=== PATIENT | female | born 2005 | race Caucasian/White ===

== ENCOUNTER 2024-05-09 15:19 | Outpatient (CLI) | payer BC, OTHER, SELFPAY ==
--- OUTSIDE RECORDS SUMMARY | 2024-05-09 15:24 | XMS_ITS | Referral Summary ---
Author Organization [facility] Address [address] [place] [address] Care Team Providers Care Procurement Engineer Name Role Phone Abhay Ribeiro MD Primary Care Provider [phone] Allergies No known active allergies Medications Medication Sig Dispensed Refills Start Date End Date Status acetaminophen (TYLENOL) 325 mg tablet Take 1 tab (325 mg total) by mouth every six hours as needed (as needed for fever and/or pain). 100 tab 0 08/05/2015 Active ibuprofen 200 mg tablet Take 2 tab(s) (400 mg total) by mouth every six hours as needed (As needed for fever and/or pain). 100 tab 0 08/05/2015 Active Multiple Vitamins-Minerals (MULTIVITAMIN PO) Take by mouth daily. Active Active Problems No known active problems Social History Tobacco Use Types Packs/Day Years Used Date Smoking Tobacco: Never Smokeless Tobacco: Never Sex and Gender Information Value Date Recorded Sex Assigned at Not on file Gender Identity Not on file Sexual Orientation Not on file Last Filed Vital Signs Vital Sign Reading Time Taken Comments Blood Pressure - - Pulse 88 08/05/2015 7:07 PM BANK CASHIER Temperature 35.6 ??C (96 ??F) 08/05/2015 7:07 PM BANK CASHIER Respiratory Rate 16 08/05/2015 7:07 PM BANK CASHIER Oxygen Saturation - - Inhaled Oxygen Concentration - - Weight 70.6 kg (155 lb 10.3 oz) 04/27/2017 1:31 PM CDT Height 169.7 cm (5' 6.81) 04/27/2017 1:31 PM CD T Body Mass Index 24.52 04/27/2017 1:31 PM CDT Plan of Treatment Not on file Care Teams Procurement Engineer Relationship Specialty Start Date End Date Abhay Ribeiro MD [address] [place] [address] [place] [address] PCP - General 02/23/10
--- OUTSIDE RECORDS SUMMARY | 2024-05-09 15:24 | XMS_ITS | Clinical Summary ---
Author Organization [facility] Address [address] [place] [address] Care Team Providers Care Stage Manager Name Role Phone Abhay Ribeiro MD Primary Care Provider [phone] Allergies No known active allergies Medications Medication [...] - - Pulse 88 08/05/2015 7:07 PM SENIOR IT ARCHITECT Temperature 35.6 ??C (96 ??F) 08/05/2015 7:07 PM SENIOR IT ARCHITECT Respiratory Rate 16 08/05/2015 7:07 PM SENIOR IT ARCHITECT Oxygen Saturation - - Inhaled Oxygen Concentration - - Weight 70.6 kg (155 lb 10.3 oz) 04/27/2017 1:31 PM CDT Height 169.7 cm (5' 6.81) 04/27/2017 1:31 PM CD T Body Mass Index 24.52 04/27/2017 1:31 PM CDT Plan of Treatment Health Maintenance Due Date Last Done Comments MMR Sequential Vaccine (1 of 1 - Standard series) 2004 DTaP/Tdap/TD Vaccine (1 - Tdap) 2010 Varicella (Sequential) Vacci ne (1 of 2 - 13+ 2-dose series) 2016 HPV Vaccine (1 - 3-dose series) 2018 Meningococcal B Vaccine (1 o f 2 - Patient Seeks Protection) 2019 Adolescent Lipid Panel 2020 Hepatitis B Vaccine (1 of 3 - 19+ 3-dose series) 2022 Influenza Vaccine (#1) 2024 SARS-COVID Vaccine (1 - 2022 season) 2024 Hepatitis A Vaccine Aged Out No longe r eligible based on patient's age to complete this topic IPV Vaccine Aged Out No longer eligi ble based on patient's age to complete this topic Meningococcal Aged Out No longer elig ible based on patient's age to complete this topic Pneumococcal Vaccine (PCV13/PCV20/PCV23) Aged Out No longer eligible b ased on patient's age to complete this topic RSV Immunizations <20 months Aged Out No longer eligible based on patient's age to complete this topic Care Teams Stage Manager Relationship Specialty Start Date End Date Abhay Ribeiro MD [address] [place] [address] [place] [address] PCP - General 02/23/10
--- OUTSIDE RECORDS SUMMARY | 2024-05-09 15:24 | XMS_ITS | Clinical Summary ---
Author Organization [facility] Address [address] [place] [address] Care Team Providers Care Mainspring Torque Tester Name Role Phone Unavailable Primary Care Provider Unavailabl e Allergies No known active allergies Medications Medication Sig Dispensed Refills Start Date End Date Status Aurovela Fe 1.5/30, 28, 1.5 mg-30 mcg (21)/75 mg (7) tablet TAKE 1 TABLET BY MOUTH DAILY OK 90 DAY PRESCRIPTION INSTEAD 04/18/2021 Active albuterol sulfate 90 mcg/Actuation inhaler 2 puffs as needed 04/18/2021 Active triamcinolone acetonide (Nasacort) 55 mcg nasal spray 1 puff in each nostril Active dicyclomine (BENTYL) 20 mg tablet Take 1 Tablet (20 mg) by mouth 2 times daily as needed for Pain. 60 Tablet 2 06/02/2021 Active Additional Information Patient not taking.Reported on 11/12/2023 loratadine (Claritin) 10 mg tablet Take 10 mg by mouth daily. Active Active Problems Problem Noted Date Diagnosed Date Generalized abdominal pain 11/12/2023 Celiac disease 10/25/2021 Vasovagal episode 10/25/2021 Hematochezia 05/04/2021 Overview (05/04/2021): Added automatically from request for surgery [id number] Family History Medical History Relation Name Comments Crohn's Disease Brother Ulcerative Colitis Maternal Aunt Celiac Disease Maternal Grandmother Thyroid Disease Mother Relation Name Status Comments Brother Maternal Aunt Maternal Grandmother Mother Alive Social History Tobacco Use Types Packs/Day Years Used Date Smoking Tobacco: Never Smokeless Tobacco: Never Alcohol Use Standard Drinks/Week Comments Never 0 (1 standard drink = 0.6 oz pur e alcohol) Adolescent Education Answer Date Record ed Getting School Help Needed Not on file 03/23 Intimate Partner Violence Answer Date R ecorded Are you in a relationship wi th someone who hurts you emotionally and/or physically? No 01/16/2024 Sex and Gender Information Value Date Recorded Sex Assigned at Not on file Gender Identity Not on file Sexual Orientation Not on file Last Filed Vital Signs Vital Sign Reading Time Taken Comments Blood Pressure 121/73 01/16/2024 1:15 PM CDT Pulse 76 01/16/2024 1:15 PM CDT Temperature 36.5 ??C (97.7 ??F) 01/16/2024 12:49 PM C DT Respiratory Rate 16 01/16/2024 1:15 PM CDT Oxygen Saturation 99% 01/16/2024 1:15 PM CDT Inhaled Oxygen Concentration - - Weight 66.3 kg (146 lb 2.6 oz) 01/16/2024 10:47 AM CDT Height 172.6 cm (5' 7.95) 01/16/2024 10:47 AM C DT Body Mass Index 22.26 01/16/2024 10:47 AM CDT Plan of Treatment Health Maintenance Due Date Last Done Comments CHLAMYDIA SCREENING (ANNUAL) 11-24 YEARS 2014 INFLUENZA VACCINE (#1) 2024 8, 06/26/2013, 06/12/2011, Additional history exists COVID-19 Vaccine ( season) 2024 08/15/2021, 12/25/2020, 12/04/2020 DTAP/TDAP/TD VACCINES (8 - Td or Tdap) 04/18/2031 04/18/2021, 04/22/2015, 12/23/2008, Additional history exists HEPATITIS B VACCINES Completed 08/30/2004, 2003, 2003 PNEUMOCOCCAL VACCINE 0-64 YEARS Aged Out 08/30/2004, 05/24/2004, 2003, Additional history exists No longer eligible based on patient's age to complete this topic HPV VACCINES Completed 11/15/2015, 110 10/2014, 04/22/2015 Advance Directives For more information, please contact: [phone] * Full Code (Latest Code Status on File) Date Activated Date Inactivated Comments 01/16/2024 11:53 AM 01/16/2024 5:36 PM * Full Code Date Activated Date Inactivated Comments 01/16/2024 10:57 AM 01/16/2024 11:53 AM * Full Code Date Activated Date Inactivated Comments 05/18/2021 1:24 PM 05/18/2021 6:43 PM
== END 2024-05-09 15:20 | disposition home or self-care (01) ==
PROVIDERS: PCP Family Medicine; Visit Provider Family Medicine
DX: R10.31 Right lower quadrant pain (principal)
CPT/HCPCS: 80053; 83690; 85651